=== PATIENT | female | born 1945 | race Caucasian/White ===

== ENCOUNTER 2019-03-09 06:04 | Day surgery (SDC) | payer MEDICARE, BC ==
[2019-03-09] MEDS ORDERED: fentaNYL 100 MCG/2 ML SDV ONE (06:52)
[2019-03-09] MEDS ORDERED: Midazolam 1 MG/ML 2 ML SDV ONE (06:53)
[2019-03-09] MEDS ORDERED: Propofol 200 MG/20 ML SDV ONE (06:53)
[2019-03-09] MEDS ORDERED: Sodium Chloride 0.9% 1,000 ML IV SCH (07:00)
--- NOTE | 2019-03-09 12:51 | OR ---
DATE OF PROCEDURE: 03/09/2019 SURGEON: Gallito Corbin MD PROCEDURE: Esophagogastroduodenoscopy. 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 COMPLICATIONS: None. POTTERY STRIPER: None. ANESTHESIA: MAC. RISKS: Risks, benefits, alternatives, and limitations including, but not limited to infection, bleeding, and perforation were explained to the patient and wished to proceed. PROCEDURE IN DETAIL: The patient was placed in left lateral decubitus position. EGD scope was introduced and advanced atraumatically to the second part of the duodenum. The scope was brought back, retroflexed. A small hiatal hernia was noted. No gastritis or ulceration. The GE junction showed small areas of inflammation consistent with reflux versus Merino's esophagus. These were biopsied in multiple quadrants. This was using cold biopsy forceps. No other abnormalities were noted in the esophagus. The patient tolerated the procedure well. Gallito Corbin MD /[id number]
== END 2019-03-09 09:00 | disposition home or self-care (01) ==
LOC: JP.SDS 06:04
PROVIDERS: ATTEND Surgery
DX: K22.70 Barrett's esophagus without dysplasia (principal); K21.0 Gastro-esophageal reflux disease with esophagitis; K44.9 Diaphragmatic hernia without obstruction or gangrene; I10 Essential (primary) hypertension; E66.9 Obesity, unspecified; Z68.42 Body mass index [BMI] 45.0-49.9, adult; Z79.899 Other long term (current) drug therapy
CPT/HCPCS: 43239; J2250; J2704; J3010; J7030; 88305